=== PATIENT | male | born 1995 | race Caucasian/White ===

== ENCOUNTER 2021-11-23 15:50 | Outpatient (CLI) | payer BC ==
[2021-11-24 23:33] LABS: SARS-CoV-2 PCR by NAA DETECTED (NotDetected)
== END 2021-11-23 15:51 | disposition home or self-care (01) ==
LOC: CSHLAB 15:50
PROVIDERS: ATTEND Internal Medicine
DX: U07.1 COVID-19 (principal)
CPT/HCPCS: U0003; U0005

== ENCOUNTER 2021-12-14 11:17 | Outpatient (CLI) | payer BC | END 2021-12-14 11:18 | disposition home or self-care (01) | LOC: CSHLAB 11:17 | PROVIDERS: ATTEND Internal Medicine | DX: Z20.822 Contact with and (suspected) exposure to COVID-19 (principal); R06.02 Shortness of breath; Z53.9 Procedure and treatment not carried out, unspecified reason ==